=== PATIENT | male | born 1970 | race Caucasian/White ===

== ENCOUNTER 2016-12-03 07:23 | Emergency (ER) ==
[2016-12-03 08:05] LABS: MANUAL DIFF NEEDED? NO
[2016-12-03 08:07] LABS: BASO% 0.5 % (0.0-0.8); EOS# 0.02 X1000 (0.0-0.7); EOS% 0.5 % (0.0-10.0); HEMATOCRIT 41.1 % (42.0-52.0); HEMOGLOBIN 13.9 g/dL (14.0-18.0); LYMPH% 15.7 % (20.5-51.1); MCHC 33.8 g/dL (33-37); MCV 88.8 FL (81-99); MONO# 0.31 X1000 (0.11-0.59); MONO% 8.1 % (1.7-9.3); MPV 10.3 FL (7.4-10.4); NEUT% 75.2 % (42.2-75.2); PLT 143 X1000 (130-400); RBC 4.63 XMIL (4.7-6.1)
[2016-12-03] MEDS ORDERED: NS 1,000 ML IV ONE (08:12)
[2016-12-03] MEDS ORDERED: ZOFRAN IV ONE (08:12)
[2016-12-03] MEDS ORDERED: DILAUDID IV ONE (08:12)
[2016-12-03 08:36] LABS: ALBUMIN 3.9 g/dL (3.5-5.0); TOTAL BILIRUBIN 0.4 mg/dL (0.20-1.00); TOTAL PROTEIN 6.5 g/dL (6.3-8.3)
[2016-12-03 08:47] LABS: URINE CULTURE PL NEEDED? NO; URINE SOURCE CLEAN CATCH
[2016-12-03 08:54] LABS: BILIRUBIN URINE NEGATIVE (NEGATIVE); BLOOD URINE NEGATIVE (NEGATIVE); CLARITY CLEAR (CLEAR); COLOR YELLOW; GLUCOSE URINE NEGATIVE (NEGATIVE); LEUKOCYTES URINE NEGATIVE (NEGATIVE); NITRITE URINE NEGATIVE (NEGATIVE); PH URINE 6.5; PROTEIN URINE TRACE mg/dL (NEGATIVE); SP GRAVITY URINE 1.015; UROBILINOGEN URINE NORMAL
[2016-12-03 09:00] LABS: URINE EPITHELIAL CELLS <10 /HPF (<10)
--- NOTE | 2016-12-03 09:11 | Diag Imaging Result Document ---
PROCEDURE NAME: CERVICAL SPINE COMPLETE - 12/03/2016 CERVICAL SPINE AP AND LATERAL WITH OBLIQUES, SEVEN VIEWS: FINDINGS: there is good alignment to the cervical spine. No precervical soft tissue swelling. No subluxation. No significant bone spurring. IMPRESSION: Negative exam.
--- NOTE | 2016-12-03 09:13 | PROVIDER DOCUMENTATION ---
HPI-Abdominal Pain/GI Problem - General Chief Complaint: Abdominal Pain Stated Complaint: BACK/NECK PAIN Time Seen by Provider: 12/03/16 07:37 Source: patient Allergies/Adverse Reactions: Patient Allergies Allergy/AdvReac Type Severity Reaction Status Date / Time naproxen sodium * Allergy RASH Verified 11/20/15 07:43 [From Ankur] Home Medications: Home Medication List Medication Instructions Recorded Confirmed Last Taken Type Lisinopril/Hydrochlorothiazide 20 mg PO DAILY 11/20/15 11/20/15 11/19/15 06:00 History [Lisinopril-Hctz 20-12.5 mg Tab] Mesalamine E.r. 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 Also complains of neck pain reports pinched nerve feeling. Denies constipation,n,v,diarrhea. Abdominal Pain Onset Location: reports: generalized abdomen Quality of Pain: reports: aching Severity in ED: reports: severe Onset/Duration: reports: 24 hours ago Timing: reports: still present Rectal Bleeding: reports: none Rectal Pain: reports: none Emesis Description: reports: none Bruising or Bleeding Gums?: No Similar Symptoms Previously?: Yes Recently seen or treated by another doctor?: No Review of Systems - Adult - REVIEW OF SYSTEMS - ADULT Constitutional: denies: chills, fever, fatique Eyes: reports: no symptoms reported Ears, Nose, Mouth & Throat: reports: no symptoms reported Cardiovascular: denies: chest pain, irregular heart rate, orthopnea Respiratory: reports: no symptoms reported Gastrointestinal: reports: abdominal pain. denies: constipation, diarrhea, nausea, rectal bleeding, vomiting Genitourinary: reports: no symptoms reported Musculoskeletal: reports: see HPI, neck pain. denies: bone pain, back pain, joint pain, joint swelling Integumentary: reports: no symptoms reported Neurological: reports: no symptoms reported Psychiatric: reports: no symptoms reported Endocrine: reports: no symptoms reported Hematologic/Lymphatic: reports: no symptoms reported Allergic/Immunologic: reports: no symptoms reported All Other Systems: Reviewed and Negative Past History - Adult - PAST MEDICAL HISTORY-ADULT Review of Records: reports: Nursing Assessment Review Major Childhood Illnesses: reports: denies history Cardiovascular: reports: HTN Genitourinary: reports: kidney disease - PRIOR SURGERIES/PROCEDURES Surgical/Procedure History: reports: other (chrons ds) - IMMUNIZATION STATUS Childhood Immunizations: See Nurse Assessment Flu Vaccine: See Nurse Assessment - SOCIAL HISTORY Smoking: denies Substance Use: alcohol Alcohol Use Frequency: rarely Physical Exam-General - PHYSICAL EXAM-ADULT Initial Vital Signs Reviewed: Yes - CONSTITUTIONAL General Appearance: appears well, alert, no apparent distress - EYES Eyes: PERRL/EOMI - HEAD, EARS, NOSE, MOUTH & THROAT HENMT: moist mucous membranes, normal ENT inspection, TMs normal, pharynx normal - NECK Neck: non-tender, full range of motion, supple, normal inspection - RESPIRATORY Respiratory: chest non-tender, lungs clear, normal breath sounds, no pleuratic chest pain, no respiratory distress, no accessory muscle use - CARDIOVASCULAR Cardiovascular: regular rate, rhythm, no edema, no gallop, no JVD, no murmur - GASTROINTESTINAL (ABDOMEN) Abdominal Exam: normal bowel sounds, soft, no organomegaly, no pulsatile mass, tenderness (generalized ttp) - MUSCULOSKELETAL Back Exam: normal inspection, no CVA tenderness, no vertebral tenderness Extremity: normal range of motion, non-tender - SKIN Integumentary: normal color, normal turgor, warm/dry - PSYCHIATRIC Psych/Mental Status: normal mood/affect, normal thought content, normal thought process, oriented x 3 Progress - PLAN OF CARE/RESULTS Progress/Plan/Lab Results: Orders Category Date Time Status Saline Loc DIRECTED Care 12/03/16 07:56 Active NPO Diet 12/03/16 07:56 Active ABDOMEN FLAT/UPRIGHT [RAD] Stat Exams 12/03/16 07:56 Taken CERVICAL SPINE COMPLETE [RAD] Stat Exams 12/03/16 07:[address] ABD/PELVIS W/ IV CONT ONLY [CT] Stat Exams 12/03/16 08:48 Ordered AMYLASE [CHEM] Stat Lab 12/03/16 07:55 Completed CBC WITH ELECTRONIC DIFF [HEME] Stat Lab 12/03/16 07:55 Completed COMPREHENSIVE METABOLIC PANEL [CHEM] Stat Lab 12/03/16 07:55 Completed LIPASE [CHEM] Stat Lab 12/03/16 07:55 Completed TROPONIN T Stat Lab 12/03/16 07:[address] W/POSS RFLX CULT [URINALYSIS] Stat Lab 12/03/16 08:25 Completed 0.9% Sodium Chloride Inj [Ns] 1,000 ml Med 12/03/16 08:12 Active IV 999 mls/hr Hydromorphone [Dilaudid] Med 12/03/16 08:12 Discontinued 1 mg IV NOW ONE Ondansetron [Zofran] Med 12/03/16 08:12 Discontinued 4 mg IV NOW ONE Vital Signs - 24 hr 12/03/16 07:35 Temperature 98.9 F Pulse Rate 89 Respiratory 20 Rate Blood Pressure 134/71 O2 Sat by Pulse 99 Oximetry Laboratory Tests 12/03/16 12/03/16 12/03/16 07:55 07:55 07:55 WBC 3.81 L RBC 4.63 L Hgb 13.9 L Hct 41.1 L MCV 88.8 MCH 30.0 MCHC 33.8 RDW Std Deviation 12.5 Plt Count 143 MPV 10.3 Immature Gran % (Auto) 0.0 Neut % (Auto) 75.2 Lymph % (Auto) 15.7 L [place] % (Auto) 8.1 Eos % (Auto) 0.5 Baso % (Auto) 0.5 Immature Gran # (Auto) 0.00 Neut # (Auto) 2.86 Lymph # (Auto) 0.60 L [place] # (Auto) 0.31 Eos # (Auto) 0.02 Baso # (Auto) 0.02 Sodium 137 Potassium 4.0 Chloride 103 Carbon Dioxide 25 Anion Gap 9 BUN 14 Creatinine 1.3 H Estimated GFR/1.73 m2 59 BUN/Creatinine Ratio 11 Glucose 141 H Calculated Osmolality 277 Calcium 9.0 Total Bilirubin 0.40 AST 50 H ALT 71 H Alkaline Phosphatase 53 Troponin T < 0.010 Total Protein 6.5 Albumin 3.9 Globulin 3.0 Albumin/Globulin Ratio 2.0 Amylase 34 Lipase 30 Urine Source Urine Color Urine Clarity Urine pH Ur Specific [place] Urine Protein Urine Ketones Urine Blood Urine Nitrite Urine Bilirubin Urine Urobilinogen Urine Microscopic RBC Urine WBC Ur Epithelial Cells Urine Bacteria Urine Glucose 12/03/16 08:25 WBC RBC Hgb Hct MCV MCH MCHC RDW Std Deviation Plt Count MPV Immature Gran % (Auto) Neut % (Auto) Lymph % (Auto) [place] % (Auto) Eos % (Auto) Baso % (Auto) Immature Gran # (Auto) Neut # (Auto) Lymph # (Auto) [place] # (Auto) Eos # (Auto) Baso # (Auto) Sodium Potassium Chloride Carbon Dioxide Anion Gap BUN Creatinine Estimated GFR/1.73 m2 BUN/Creatinine Ratio Glucose Calculated Osmolality Calcium Total Bilirubin AST ALT Alkaline Phosphatase Troponin T Total Protein Albumin Globulin Albumin/Globulin Ratio Amylase Lipase Urine Source CLEAN CATCH Urine Color YELLOW Urine Clarity CLEAR Urine pH 6.5 Ur Specific [place] 1.015 Urine Protein TRACE A Urine Ketones NEGATIVE Urine Blood NEGATIVE Urine Nitrite NEGATIVE Urine Bilirubin NEGATIVE Urine Urobilinogen NORMAL Urine Microscopic RBC Not Reportable Urine WBC NEGATIVE Ur Epithelial Cells <10 Urine Bacteria 1+ Urine Glucose NEGATIVE - XRAY 1 XRAY: Bilateral XRAY Study: Abdomen Impression: Abnormal XRAY Interpretation: minimal constipation 2 XRAY: Bilateral XRAY Study: C-Spine Impression: Normal XRAY Interpretation: negative exam([facility]) - CT/MRI 1 CT Study: Abdomen Impression: Abnormal (mild fatty infiltration of the liver. questionalbe small nonobstructing renal stone with small scattered renal cyst. no hydronephrosis. no SHEN. Normal appendix. no abscess. small umbilical hernia and inguinal hernia filled with fat. no bowerl loops within these. questionable thickening to the distal esohagus which could indicate esophagits/reflux.) Departure - Departure Time of Disposition Order: 10:46 DIAGNOSIS: Neck pain Abdominal pain Qualifiers: Abdominal location: generalized Qualified Code(s): R10.84 - Generalized abdominal pain Disposition: HOME 01 Certified Medical Emergency: Emergent Condition: Stable Additional Instructions: Follow up with ED Follow Up Instructions: You have been treated by a care provider in the Emergency Department. These instructions are being provided to you so you can have an understanding of how to care for yourself upon discharge. Upon discharge from the Emergency Department, you are responsible for making arrangements for follow-up care by a physician of your choice. Take all prescribed medications as directed. Return to the Emergency Department immediately for any new or worsening symptoms. You may call the Physician Referral phone number at [phone] to obtain a list of Physicians who are taking new patients. Referrals: Mars Atkinson DO [Primary Care Provider] - Naya Lama MD [STAFF PHYSICIAN] - Attestation - Scribe Verification/Attestation Scribe:: Bruce Mendoza Acting as Scribe for:: Diandra Souza Scribe documention review:: This chart was documented by a scribe and accurately reflects the service the provider performed and the decisions made by the provider. Physician Attestation - Physician Attestation I, the provider, attest to the following statement:: Diandra Souza Physician documentation Attestation:: This documentation recorded by the scribe accurately reflects the service I personally performed and the decisions made by me.
--- NOTE | 2016-12-03 09:26 | Diag Imaging Result Document ---
PROCEDURE NAME: ABDOMEN FLAT/UPRIGHT - 12/03/2016 FLAT AND UPRIGHT ABDOMEN, FOUR VIEWS: FINDINGS: No free air beneath the diaphragm. No organomegaly. Small amount of stool is found throughout the colon. No bowel obstruction. No abnormal abdominal or pelvic calcifications. IMPRESSION: Minimal constipation.
--- NOTE | 2016-12-03 10:26 | Diag Imaging Result Document ---
PROCEDURE NAME: CT ABD/PELVIS W/ IV CONT ONLY - 12/03/2016 CT ABDOMEN AND PELVIS WITH INTRAVENOUS CONTRAST: COMPARISON: 11/20/2015. FINDINGS: There is mild fatty infiltration of the liver. Questionable mild thickening of the distal esophagus at the GE junction. Normal spleen, pancreas, gallbladder, and adrenal glands. There may be tiny renal stones, but uncertain with intravenous contrast. There are several tiny renal cysts. No hydronephrosis. Normal aorta. No bowel obstruction. Normal appendix. No abscess. The urinary bladder is distended and appears normal. The prostate is not enlarged. There are small fat filled inguinal hernias. No bowel loops within these. There is a fat filled umbilical hernia. No bowel loop within this. No free air. IMPRESSION: 1. Mild fatty infiltration of the liver. 2. Questionable small nonobstructing renal stones with small scattered renal cysts. No hydronephrosis. 3. No bowel obstruction. Normal appendix. No abscess. 4. Small umbilical hernia and inguinal hernias filled with fat. No bowel loops within these. 5. Questionable thickening to the distal esophagus which could indicate esophagitis/reflux. A preliminary report was given at 10:11 a.m. [facility]
[2016-12-03] MEDS ORDERED: NORCO-10 PO ONE (10:47)
[2016-12-03 11:19] VITALS: BP 120/80
== END 2016-12-03 11:24 | disposition home or self-care (01) ==
LOC: P.ED 07:23
DX: R10.84 Generalized abdominal pain (principal); M54.2 Cervicalgia; K76.0 Fatty (change of) liver, not elsewhere classified; K42.9 Umbilical hernia without obstruction or gangrene; K40.90 Unilateral inguinal hernia, without obstruction or gangrene, not specified as recurrent; R10.817 Generalized abdominal tenderness; I10 Essential (primary) hypertension; Z79.899 Other long term (current) drug therapy
CPT/HCPCS: 72050; 74020; 74177; 80053; 81001; 82150; 83690; 84484; 85025; 96361; 96374; 96375; J1170; J2405; J7030; Q9967

== ENCOUNTER 2016-12-06 13:03 | Inpatient (IN) | payer OTHER ==
--- NOTE | 2016-12-06 13:36 | PROVIDER DOCUMENTATION ---
HPI-Abdominal Pain/GI Problem - General Chief Complaint: Abdominal Pain Stated Complaint: CROHNS PAIN Time Seen by Provider: 12/06/16 13:12 Source: patient, family Allergies/Adverse Reactions: Patient Allergies Allergy/AdvReac Type Severity Reaction Status Date / Time naproxen sodium * Allergy RASH Verified 12/06/16 13:39 [From Julietamojgan] Home Medications: Home Medication List Medication Instructions Recorded Confirmed Last Taken Type Lisinopril/Hydrochlorothiazide 20 mg PO DAILY 11/20/15 12/06/16 12/05/16 08:00 History [Lisinopril-Hctz 20-12.5 mg Tab] - History of Present Illness-ABD Nature of Presenting Problems: 46 yo WM complains of 5 day history of worsening abdominal pain. Last normal BM was Friday. Began having abdominal pain on 12-02. Was seen at [facility] with normal CT, sent home. Since then scant/inadequate bowel output and worsening pain which has localized in the mid abdomen radiating to the left side. Feels 'hot' did not measure temp. Patient of Dr. Lama. Abdominal Pain Onset Location: reports: LLQ, periumbilical Pain Radiation: reports: LLQ Quality of Pain: reports: aching, cramping Severity in ED: reports: severe Onset/Duration: reports: 5 days ago Timing: reports: intermittent, getting worse Activities at Onset: reports: none Exposure to sick contacts?: No Modifying Factors: improves with: palpation. worse with: eating, urinating, vomiting Associated Symptoms: reports: constipation, fever/chills, loss of appetite, malaise, muscle aches, nausea, vomiting. denies: genitourinary problems, heartburn Last BM: last night Dark Stools Present?: reports: none noticed Rectal Bleeding: reports: none Rectal Pain: reports: none Emesis Description: reports: clear Bruising or Bleeding Gums?: No Similar Symptoms Previously?: Yes Recently seen or treated by another doctor?: No Review of Systems - Adult - REVIEW OF SYSTEMS - ADULT Constitutional: reports: fever Ears, Nose, Mouth & Throat: reports: no symptoms reported Cardiovascular: reports: no symptoms reported Respiratory: reports: no symptoms reported Gastrointestinal: reports: see HPI, abdominal pain, constipation, nausea, poor appetite, vomiting. denies: rectal bleeding Genitourinary: reports: no symptoms reported Musculoskeletal: reports: no symptoms reported Integumentary: reports: no symptoms reported Neurological: reports: no symptoms reported Psychiatric: reports: no symptoms reported Past History - Adult - PAST MEDICAL HISTORY-ADULT Review of Records: reports: Old Records Reviewed, Nursing Assessment Review, Medications Reviewed, Social history reviewed & non-contributory. Major Childhood Illnesses: reports: denies history Cardiovascular: reports: HTN Gastrointestinal: reports: Crohn's, obstruction Genitourinary: reports: kidney disease Musculoskeletal: reports: denies history Neurological: reports: denies history Psychiatric: reports: denies history - PRIOR SURGERIES/PROCEDURES Surgical/Procedure History: reports: other (chrons ds) - IMMUNIZATION STATUS Childhood Immunizations: See Nurse Assessment Flu Vaccine: See Nurse Assessment - FAMILY HISTORY Family History: reviewed, not pertinent - SOCIAL HISTORY Smoking: denies Substance Use: none/never Alcohol Use Frequency: never Living Situation: family Physical Exam-General - PHYSICAL EXAM-ADULT Initial Vital Signs Reviewed: Yes - CONSTITUTIONAL General Appearance: moderate distress - HEAD, EARS, NOSE, MOUTH & THROAT HENMT: normocephalic/atraumatic, moist mucous membranes, normal ENT inspection - NECK Neck: non-tender. negative: carotid bruit, limited range of motion - RESPIRATORY Respiratory: lungs clear, normal breath sounds, no pleuratic chest pain, no respiratory distress, no accessory muscle use - CARDIOVASCULAR Cardiovascular: normal peripheral pulses, regular rate, rhythm, no edema, no JVD - GASTROINTESTINAL (ABDOMEN) Abdominal Exam: normal bowel sounds, distended, guarding, rebound, tenderness. negative: rigid - MUSCULOSKELETAL Back Exam: no CVA tenderness, no vertebral tenderness Extremity: non-tender, normal inspection, no pedal edema, no calf tenderness, normal capillary refill - SKIN Integumentary: normal color, normal turgor, other (slightly erythematous rash on abdominal wall) - PSYCHIATRIC Psych/Mental Status: normal mood/affect, normal thought content, normal thought process, oriented x 3 Progress - PLAN OF CARE/RESULTS Progress/Plan/Lab Results: Orders Category Date Time Status Saline Loc DIRECTED Care 12/06/16 13:27 Active Soap Suds Enema DIRECTED Care 12/06/16 15:45 Active NPO Diet 12/06/16 13:[address] ABD/PELVIS W/ IV CONT ONLY [CT] Stat Exams 12/06/16 13:30 Taken AMYLASE [CHEM] Stat Lab 12/06/16 13:22 Completed CBC WITH ELECTRONIC DIFF [HEME] Stat Lab 12/06/16 13:22 Completed COMPREHENSIVE METABOLIC PANEL [CHEM] Stat Lab 12/06/16 13:22 Completed LIPASE [CHEM] Stat Lab 12/06/16 13:22 Completed URINALYSIS W/POSS RFLX CULT [URINALYSIS] Stat Lab 12/06/16 14:10 Completed 0.9% Sodium Chloride Inj [Ns] 1,000 ml Med 12/06/16 14:40 Discontinued IV 999 mls/hr Hydromorphone [Dilaudid] Med 12/06/16 15:43 Discontinued 1 mg IV NOW ONE Methylnaltrexone [Relistor] Med 12/06/16 15:45 Discontinued 12 mg SUBQ NOW ONE Morphine Med 12/06/16 13:52 Discontinued 4 mg IV NOW ONE Promethazine [Phenergan] Med 12/06/16 13:52 Discontinued 12.5 mg IV NOW ONE Sodium Chloride 0.9% Med 12/06/16 13:52 Discontinued 10 ml INJ NOW ONE Vital Signs Temp Pulse Resp BP Pulse Ox 12/06/16 13:06 97.7 F 84 20 116/74 100 naproxen sodium * [From Aleve] Allergy (Verified 12/06/16 13:39) RASH Lisinopril/Hydrochlorothiazide [Lisinopril-Hctz 20-12.5 mg Tab] 20 mg PO DAILY 11/20/15 Dietary Diet NPO Start Fri 3 1327 I&O 12/05/16 12/06/16 12/07/16 07:59 07:59 07:59 Output Total 75 Balance -75 Laboratory 12/06/16 12/06/16 12/06/16 14:10 13:22 13:22 WBC 4.40 L RBC 4.47 L Hgb 13.5 L Hct 39.1 L MCV 87.5 MCH 30.2 MCHC 34.5 RDW Std Deviation 12.3 Plt Count 141 MPV 10.3 Immature Gran % (Auto) 0.0 Neut % (Auto) 67.2 Lymph % (Auto) 17.3 L [place] % (Auto) 13.4 H Eos % (Auto) 1.6 Baso % (Auto) 0.5 Immature Gran # (Auto) 0.00 Neut # (Auto) 2.96 Lymph # (Auto) 0.76 L [place] # (Auto) 0.59 Eos # (Auto) 0.07 Baso # (Auto) 0.02 Sodium 133 L Potassium 4.4 Chloride 94 L Carbon Dioxide 28 Anion Gap 11 BUN 16 Creatinine 1.3 H Estimated GFR/1.73 m2 59 BUN/Creatinine Ratio 12 Glucose 115 H Calculated Osmolality 268 Calcium 8.7 L Total Bilirubin 0.68 AST 72 H ALT 114 H Alkaline Phosphatase 101 Total Protein 6.7 Albumin 3.8 Globulin 2.9 Albumin/Globulin Ratio 1.3 Amylase 44 Lipase 31 Urine Source CLEAN CATCH Urine Color YELLOW Urine Turbidity CLEAR Urine pH 7.0 Ur Specific [place] 1.028 Urine Protein 30 A Ur Glucose (Stick) NEGATIVE Ur Ketones (Stick) NEGATIVE Urine Blood NEGATIVE Urine Nitrite NEGATIVE Urine Bilirubin NEGATIVE Urobilinogen Dipstick 2 A Urine Leukocytes NEGATIVE Urine WBC (Auto) <10 Urine RBC (Auto) <10 U Epithel Cells (Auto) <10 Urine Bacteria (Auto) NEGATIVE 1535 Patient still in pain requests different pain med. Discussed results, will continue IVF and try enema. Patient in agreement. 1800 After enema he was able to have BM but does not feel 'emptied.' Continues to have abdominal pain and cramping. - CONSULTS/PCP/HOSPITALIST Notification #1 *Consult/PCP/Hospitalist*: Ulisses Time Discussed: 18:15 Consult Disposition: Will see in ED, Admit Departure - Departure Time of Disposition Order: 18:10 DIAGNOSIS: Abdominal pain of unknown cause Constipation Qualifiers: Constipation type: other constipation type Qualified Code(s): K59.09 - Other constipation Crohns disease Qualifiers: Gastrointestinal tract location: small intestine Digestive disease complication type: without complication Qualified Code(s): K50.00 - Crohn's disease of small intestine without complications Disposition: ADMITTED INPATIENT 09 Certified Medical Emergency: Emergent Condition: Stable Referrals: Mars Atkinson DO [Primary Care Provider] -
[2016-12-06 13:41] LABS: MANUAL DIFF NEEDED? NO
[2016-12-06 13:46] LABS: BASO% 0.5 % (0.0-0.8); EOS# 0.07 X1000 (0.0-0.7); EOS% 1.6 % (0.0-10.0); HEMATOCRIT 39.1 % (42.0-52.0); HEMOGLOBIN 13.5 g/dL (14.0-18.0); LYMPH# 0.76 X1000 (1.2-3.4); LYMPH% 17.3 % (20.5-51.1); MCH 30.2 PG (27-31); MCHC 34.5 g/dL (33-37); MCV 87.5 FL (81-99); MONO# 0.59 X1000 (0.11-0.59); MONO% 13.4 % (1.7-9.3); MPV 10.3 FL (7.4-10.4); NEUT% 67.2 % (42.2-75.2); PLT 141 X1000 (130-400); RBC 4.47 XMIL (4.7-6.1)
[2016-12-06] MEDS ORDERED: PHENERGAN IV ONE (13:52)
[2016-12-06] MEDS ORDERED: SODIUM CHLORIDE 0.9% INJ ONE (13:52)
[2016-12-06] MEDS ORDERED: MORPHINE IV ONE (13:52)
[2016-12-06 14:02] LABS: ALBUMIN 3.8 g/dL (3.5-5.0); CALCIUM 8.7 mg/dL (8.8-10.2); POTASSIUM 4.4 mmol/L (3.5-5.1); TOTAL BILIRUBIN 0.68 mg/dL (0.20-1.00); TOTAL PROTEIN 6.7 g/dL (6.3-8.3)
[2016-12-06 14:13] LABS: URINE CULTURE NEEDED? NO; URINE MICRO REVIEW NEEDED? NO; URINE SOURCE CLEAN CATCH
[2016-12-06 14:16] LABS: BILIRUBIN URINE NEGATIVE (NEGATIVE); BLOOD URINE NEGATIVE (NEGATIVE); COLOR YELLOW; GLUCOSE URINE NEGATIVE (NEGATIVE); LEUKOCYTES URINE NEGATIVE (NEGATIVE); NITRITE URINE NEGATIVE (NEGATIVE); PROTEIN URINE 30 mg/dL (NEGATIVE); SP GRAVITY URINE 1.028; TURBIDITY URINE CLEAR (CLEAR); UROBILINOGEN URINE 2 mg/dL (NORMAL)
[2016-12-06 14:17] LABS: UR EPITHELIAL CELLS <10 /HPF (<10); URINE BACTERIA NEGATIVE /HPF; URINE RBC <10 /HPF (<10); URINE WBC <10 /HPF (<10)
[2016-12-06] MEDS ORDERED: NS 1,000 ML IV ONE (14:40)
[2016-12-06] MEDS ORDERED: DILAUDID IV ONE (15:43)
[2016-12-06] MEDS ORDERED: RELISTOR SUBQ ONE (15:45)
--- NOTE | 2016-12-06 15:48 | Diag Imaging Result Document ---
PROCEDURE NAME: CT ABD/PELVIS W/ IV CONT ONLY - 12/06/2016 CT ABDOMEN AND PELVIS WITH IV CONTRAST ONLY: Exam performed with intravenous contrast only per request of the referring provider. A dose-reduction protocol was used. COMPARISON: No comparison exam. FINDINGS: There is some hazy atelectasis at the bilateral lung bases. There are no acute abnormalities of the liver, spleen, adrenal glands, or pancreas identified. There are no calcified gallstones or pericholecystic inflammation identified. There are scattered small low-density lesions suggestive of cyst in the kidneys similar to the previous exam. The bilateral kidneys, otherwise, enhance homogeneously. There is no hydronephrosis. There are no substantially enlarged lymph nodes identified. There is no evidence of bowel obstruction. The appendix is unremarkable. There is a small fat- containing umbilical hernia similar to the previous exam. There is no bowel-containing hernia identified. There is no substantial bowel wall thickening identified. There is no abscess identified. There is no free air or substantial free fluid seen. IMPRESSION: 1. Apparent small renal cysts similar to the previous exam. No hydronephrosis. 2. Small fat-containing umbilical hernia. No bowel-containing hernia. No bowel obstruction. 3. No inflammation identified. No free air or abscess seen.
[2016-12-06] MEDS ORDERED: ZOFRAN IV ONE (15:58)
[2016-12-06] MEDS ORDERED: PREDNISONE PO ONE (18:54)
--- NOTE | 2016-12-06 20:06 | HISTORY AND PHYSICAL ---
PRIMARY CARE PHYSICIAN: Mars Atkinson D.O. CHIEF COMPLAINT: Abdominal pain and constipation. HISTORY OF PRESENT ILLNESS: The patient is a 46-year-old white male with a history of hypertension and recently diagnosed with Crohn's who presented to the emergency room with a 5-day history of constipation and left upper and lower quadrant pain. The patient stated that he was in his usual state of health until about Friday when he noticed that he could not have a bowel movement and it continued to get worse as time went on. His nausea was also getting worse up until yesterday when he started having vomiting and he feels better. His pain continued to get worse to the point where he called his GI office, Dr. Lama, who suggested that he go to the emergency room if he did not get any better. The patient showed up to the emergency room with the same complaint. He did have some nausea and vomiting today. In the emergency room they gave him an enema and he did have a small bowel movement. A CAT scan of the abdomen and pelvis was also done in the emergency room that showed no inflammation, free air or abscess. Furthermore the patient has not been able to eat or drink adequately since the symptoms started Friday. He appeared to be very dehydrated. His mucous membranes were also dry. He denied having any recent sickness or sick contacts. He denies eating anything out of the ordinary. PAST MEDICAL HISTORY: 1. Crohn's. 2. Obesity. 3. Hypertension. 4. Arthritis. PAST SURGICAL HISTORY: 1. Shoulder surgery. 2. Head and neck surgery. 3. Sinus surgery. 4. Left femur and ankle surgery. ALLERGIES: The patient is allergic to naproxen. FAMILY HISTORY: His brother with cirrhosis of the liver secondary to alcohol abuse. No other heart disease running in his family. SOCIAL HISTORY: The patient is a social drinker. He denies tobacco, alcohol or any recreational drugs. HOME MEDICATIONS: 1. [id number] laxative as needed. 2. Lisinopril/hydrochlorothiazide 25 mg., 1 tablet p.o. daily. REVIEW OF SYSTEMS: Twelve systems reviewed and were negative except for what is mentioned in history of present illness. PHYSICAL EXAMINATION: VITAL SIGNS: Blood pressure 116/74, pulse 84, respirations 20, temperature 97.7 degrees, sat 100% on room air. Weight 244 pounds. GENERAL APPEARANCE: Morbidly obese, white male, in mild distress due to abdominal discomfort. HEENT: Anicteric sclerae. Clear conjunctivae. NECK: Supple. No JVD. No bruit. CARDIOVASCULAR: S1, S2. Normal rate and rhythm. No murmur, rubs, or gallops. PULMONARY: Clear to auscultation bilaterally. GASTROINTESTINAL: Abdomen soft. Tender to palpation in the left upper and lower quadrant. Normoactive bowel sounds. MUSCULOSKELETAL: Left lower extremity has about 1+ pitting edema which is chronic for the patient. Right lower extremity has no edema. NEUROLOGIC: Afocal. PSYCHIATRIC: Euthymic mood. LABORATORY: White count 4.4, hemoglobin 13.5, hematocrit 39.1, platelets 141,000. Chemistry: Sodium 132, potassium 4.4, chloride 94, bicarb 28, BUN 16, creatinine 1.3, lipase 31, amylase 44. Liver function tests mildly elevated, 72 AST and 114 ALT. CAT scan of the abdomen and pelvis were reviewed. ASSESSMENT AND PLAN: This is a 46-year-old, white male with history of Crohn's admitted to the hospital for abdominal pain. 1. Abdominal pain. The etiology is vast. Since the patient had Crohn's disease, concerning for Crohn's flare. CAT scan of the abdomen and pelvis did not reveal significant stool burden. This most likely was probably secondary to a Crohn's flare. We started the patient on prednisone 50 mg p.o. daily, antibiotics Flagyl and Levaquin, and laxative. We will send stool for C. difficile if he is not having diarrhea. 2. Dehydration with hyponatremia and mildly elevated creatinine. We will start the patient on normal saline 125 mL per hour. We will recheck his renal function in the morning. We will also recheck his liver function in the morning to make sure that his AST and ALT are trending down. We will also consider a right upper quadrant ultrasound if his liver function continues to remain elevated. 3. Hypertension. We will resume his Zestoretic. 4. Deep vein thrombosis prophylaxis. We will put the patient on Lovenox 40 mg subcutaneous daily. CODE STATUS: The patient is a full code. His is his surrogate decision maker.
[2016-12-06] MEDS: DILAUDID IV PRN ×2 (21:07→23:55)
[2016-12-06] MEDS: ZOFRAN IV PRN (21:07)
[2016-12-06] MEDS: NS 1,000 ML IV SCH (21:11)
[2016-12-06] MEDS: FLAGYL 500 MG/NS 100 ML IV SCH (21:23)
[2016-12-06] MEDS: MIRALAX PO SCH (21:23)
[2016-12-06] MEDS: LEVAQUIN 750 MG/D5W 150 ML IV SCH (21:23)
[2016-12-06] MEDS: PRILOSEC PO SCH (21:24)
[2016-12-06] MEDS: PERICOLACE PO SCH (21:24)
[2016-12-07] MEDS: ZOFRAN IV PRN ×6 (01:07→21:33)
[2016-12-07] MEDS: NS 1,000 ML IV SCH ×3 (04:45→12:01)
[2016-12-07 05:47] LABS: MANUAL DIFF NEEDED? NO
[2016-12-07 06:02] LABS: BASO% 0.3 % (0.0-0.8); HEMATOCRIT 36.8 % (42.0-52.0); HEMOGLOBIN 12.7 g/dL (14.0-18.0); LYMPH# 0.72 X1000 (1.2-3.4); LYMPH% 18.2 % (20.5-51.1); MCH 30.5 PG (27-31); MCHC 34.5 g/dL (33-37); MCV 88.2 FL (81-99); MONO# 0.27 X1000 (0.11-0.59); MONO% 6.8 % (1.7-9.3); MPV 10.4 FL (7.4-10.4); NEUT% 74.7 % (42.2-75.2); PLT 142 X1000 (130-400); RBC 4.17 XMIL (4.7-6.1)
[2016-12-07 06:11] LABS: INR 1.07; PROTIME 11.4 Seconds (9.2-11.7); PTT 30.3 Seconds (22.0-36.0)
[2016-12-07] MEDS: FLAGYL 500 MG/NS 100 ML IV SCH ×3 (06:14→21:33)
[2016-12-07] MEDS: PRILOSEC PO SCH ×2 (06:15→21:33)
[2016-12-07] MEDS: DILAUDID IV PRN ×6 (06:15→23:28)
[2016-12-07 06:17] LABS: AGAP 11; ALBUMIN 3.5 g/dL (3.5-5.0); ALKALINE PHOSPHATASE 88 U/L (32-122); BUN 15 mg/dL (8-22); CALCIUM 8.3 mg/dL (8.8-10.2); CHLORIDE 98 mmol/L (98-107); COSMO 273; GOT 48 U/L (10-34); GPT 94 U/L (10-44); MAGNESIUM 2.2 mg/dL (1.5-2.7); SODIUM 134 mmol/L (136-145); TCO2 25 mmol/L (25-35); TOTAL BILIRUBIN 0.47 mg/dL (0.20-1.00); TOTAL PROTEIN 6.3 g/dL (6.3-8.3)
[2016-12-07] MEDS: LOVENOX SUBQ SCH (09:37)
[2016-12-07] MEDS: MIRALAX PO SCH ×2 (09:39→21:33)
[2016-12-07] MEDS: PREDNISONE PO SCH (09:41)
[2016-12-07] MEDS: PRINZIDE 20/12.5MG PO SCH (09:43)
[2016-12-07] MEDS: PERICOLACE PO SCH ×2 (09:43→21:33)
--- NOTE | 2016-12-07 14:42 | PROGRESS NOTE ---
DATE: 12/07/2016 SUBJECTIVE: The patient is doing a little better than he was yesterday. No fever, no chills. No nausea, vomiting, or diarrhea. No bowel movement since admission. OBJECTIVE: Vital signs: Blood pressure 120/78, pulse of 54, respiration 18, temperature 97.8 degrees, saturations 100% room air. General appearance: Morbidly obese white male, no acute distress. HEENT: Anicteric. Clear conjunctiva. Neck: Supple. No JVD. No bruits. Cardiovascular: S1, S2. Normal rate and rhythm. No murmur, rubs, or gallops. Pulmonary: Clear to auscultation bilaterally. GI: Tender to palpation on the left upper and lower quadrants. Normoactive bowel sounds. Musculoskeletal: No clubbing, cyanosis, or edema. LABORATORY: White count 3.96, hemoglobin 12.7, hematocrit of 36.8, platelets 142,000. Sodium 134, potassium 5.0, chloride 98, bicarb 25, BUN 15, creatinine 1.0, glucose 176. ASSESSMENT AND PLAN: This is a 46-year-old white male admitted to the hospital for abdominal pain. 1. Crohn flare. Will continue antibiotics and steroids. Will continue laxative. Advance patient to a full liquid. Will monitor his in and out. 2. Hypertension. Will keep the patient on Zestoretic for now and will keep on IV fluids as well. 3. Deep vein thrombosis prophylaxis. The patient on Lovenox. 4. Code Status. The patient is a full code. 1. Will check lab work in the morning.
[2016-12-07] MEDS: LEVAQUIN 750 MG/D5W 150 ML IV SCH (23:28)
[2016-12-08] MEDS: ZOFRAN IV PRN ×5 (01:26→20:29)
[2016-12-08] MEDS: NS 1,000 ML IV SCH ×3 (03:08→20:20)
[2016-12-08] MEDS: FLAGYL 500 MG/NS 100 ML IV SCH ×3 (04:48→22:52)
[2016-12-08] MEDS: DILAUDID IV PRN ×5 (04:57→20:28)
[2016-12-08] MEDS: PRILOSEC PO SCH ×2 (05:59→20:27)
[2016-12-08] MEDS: PREDNISONE PO SCH (08:03)
[2016-12-08] MEDS: MIRALAX PO SCH ×2 (08:03→20:24)
[2016-12-08] MEDS: PERICOLACE PO SCH ×2 (08:03→20:24)
[2016-12-08] MEDS: LOVENOX SUBQ SCH (08:03)
[2016-12-08] MEDS: PRINZIDE 20/12.5MG PO SCH (08:04)
[2016-12-08] MEDS: BENADRYL IV PRN ×2 (08:27→16:27)
--- NOTE | 2016-12-08 14:49 | PROGRESS NOTE ---
DATE: 12/08/2016 SUBJECTIVE: The patient is feeling well. Minimal pain and no nausea, no vomiting. The patient just has small bowel movements but no diarrhea. OBJECTIVE: Vital signs: Blood pressure 112/67, pulse of 59, respirations 20, temperature 98.0 degrees, saturations of 100% room air. General Appearance: Obese white male in no acute distress. HEENT: Anicteric. Clear conjunctivae. Neck: Supple. No JVD. No bruits. Cardiovascular: S1, S2. Normal rate and rhythm. No murmur, rubs, or gallops. Pulmonary: Clear to auscultation bilaterally. GI: Soft, nontender, nondistended. Normoactive bowel sounds. Musculoskeletal: No clubbing, cyanosis or edema. LABORATORY: His white count 3.96, hemoglobin 12.7, hematocrit of 36.8, platelets 142,000. Chemistry. Sodium 134, potassium 5.0, chloride 98, bicarb 25, BUN 15, creatinine 1.0, glucose of 170. Liver function tests trending down. ASSESSMENT AND PLAN: This is a 46-year-old white male with history of Crohn disease admitted to the hospital for abdominal pain, nausea and vomiting. 1. Abdominal pain. Probably is due to his Crohn flare. Will continue prednisone p.o. and continue Flagyl and Levaquin. If he continues to do well will consider to transition him to oral Flagyl and Levaquin for the next 7 days and tapering his steroid at discharge. Will advance diet to soft. We had not been able to obtain the stool for cultures since the patient has not had some much of bowel movement lately. 2. Hypertension. Will continues Zestoretic. 3. Deep vein thrombosis prophylaxis. The patient on Lovenox. CODE STATUS: The patient is a full code.
[2016-12-08] MEDS: LEVAQUIN 750 MG/D5W 150 ML IV SCH (20:20)
[2016-12-09] MEDS: ZOFRAN IV PRN ×4 (00:38→11:57)
[2016-12-09] MEDS: DILAUDID IV PRN ×3 (00:38→11:57)
[2016-12-09] MEDS: FLAGYL 500 MG/NS 100 ML IV SCH ×2 (04:14→13:11)
[2016-12-09] MEDS: NS 1,000 ML IV SCH (04:17)
[2016-12-09] MEDS: PRILOSEC PO SCH ×2 (06:01→18:29)
[2016-12-09 06:56] LABS: MANUAL DIFF NEEDED? NO
[2016-12-09 07:15] LABS: BASO% 0.2 % (0.0-0.8); EOS# 0.02 X1000 (0.0-0.7); EOS% 0.2 % (0.0-10.0); HEMATOCRIT 37.5 % (42.0-52.0); HEMOGLOBIN 12.7 g/dL (14.0-18.0); IMM GRAN# 0.06 X1000 (0.0-0.04); IMM GRAN% 0.7 % (0.0-0.5); LYMPH# 1.52 X1000 (1.2-3.4); LYMPH% 17.2 % (20.5-51.1); MCH 30.2 PG (27-31); MCHC 33.9 g/dL (33-37); MCV 89.3 FL (81-99); MPV 9.8 FL (7.4-10.4); NEUT% 72.7 % (42.2-75.2); PLT 194 X1000 (130-400)
[2016-12-09 07:21] LABS: AGAP 7; BUN 17 mg/dL (8-22); CALCIUM 8.1 mg/dL (8.8-10.2); CHLORIDE 99 mmol/L (98-107); COSMO 272; POTASSIUM 4.2 mmol/L (3.5-5.1); SODIUM 135 mmol/L (136-145); TCO2 29 mmol/L (25-35)
[2016-12-09] MEDS: PREDNISONE PO SCH (11:08)
[2016-12-09] MEDS: PERICOLACE PO SCH (11:08)
[2016-12-09] MEDS: LOVENOX SUBQ SCH (11:08)
[2016-12-09] MEDS: PRINZIDE 20/12.5MG PO SCH (11:08)
[2016-12-09] MEDS: MIRALAX PO SCH (11:09)
[2016-12-09 14:37] VITALS: BP 138/79
[2016-12-09] MEDS ORDERED: SODIUM CHLORIDE 0.9% INJ SCH (16:30)
[2016-12-09] MEDS ORDERED: PROTONIX IV SCH (16:30)
[2016-12-09] MEDS ORDERED: NORCO-5 PO PRN (16:31)
--- NOTE | 2016-12-09 18:21 | PROGRESS NOTE ---
DATE: 12/09/2016 SUBJECTIVE: The patient complains of a headache this morning. He states that overall he just does not feel very good. OBJECTIVE: Vital Signs: Temperature 98.7 degrees, blood pressure 130/79, heart rate 70, respirations 18, O2 saturations 99% on room air. General: This is a morbidly obese male, lying in bed, in no acute distress. Head: Normocephalic, atraumatic. Heart: S1, S2 normal. Regular rate and rhythm. Lungs: Clear to auscultation bilaterally. No wheezes, no rales, no rhonchi. Abdomen: Positive bowel sounds. Soft, nontender, nondistended. Extremities: No edema. No cyanosis. No calf tenderness. Neurological: Patient is alert and oriented x3. No focal neurologic deficits noted. LABS: White blood cell count 8.5, hemoglobin 12, hematocrit 37, platelets 194,000. Sodium 135, potassium 4.2, chloride 99, CO2 28, BUN 17, creatinine 1.2, glucose 108, calcium 8.1. ASSESSMENT AND PLAN: 1. Crohn's flare. Continue on IV Levaquin and IV Flagyl. Continue on steroid therapy. We will consult Dr. Lama for further recommendations. 2. Morbid obesity. Aware. 3. Hypertension. Controlled. 4. Deep vein thrombosis prophylaxis. Continue on Lovenox.
--- NOTE | 2016-12-09 20:10 | CONSULTATION ---
DATE OF CONSULTATION: 12/09/2016 REFERRING PHYSICIAN: Charisse Silverman MD PRIMARY CARE PHYSICIAN: Mars Atkinson MD INDICATION FOR CONSULTATION: Abdominal pain. HISTORY OF PRESENT ILLNESS: Patient is a 46-year-old white male who was initially evaluated in November 2015. At that time he presented with a possible small bowel obstruction and an abnormal CT scan. He underwent EGD and colonoscopy for evaluation of dysphagia, heartburn, nausea with vomiting and severe constipation. On EGD he was found to have erosive esophagitis grade D, Schatzki's ring, large hiatal hernia, acute erosive gastritis, nonbleeding arteriovenous malformations and an AVM. He was treated with Carafate and Protonix with interval improvement. However, he did not return for his follow up surveillance EGD in light of the presence of the large antral ulcer. On colonoscopy he was found to have terminal ileitis as well as pancolitis. There was mild proctitis. While the changes were consistent with Crohn's disease, his Prom[facility] panel was negative. He was treated with oral steroids and Pentasa for 6 months. His Pentasa was discontinued and continued to do well. However he failed to keep his followup appointment for repeat EGD and colonoscopy. The patient states that he felt reasonably well until approximately 2 weeks ago when he developed flu-like symptoms. The symptoms were associated with severe abdominal pain. He presented to [facility] emergency room were he was told that he was constipated. He was treated with an enema but continued to have constipation, left upper quadrant and left lower quadrant pain. He reports eating corn and reports that his pain became severely more intense over the next 4-6 hours. He presented to the emergency room. CT scan of the abdomen, pelvis was negative for inflammation, free air or abscess. Because the patient was dehydrated and having abdominal pain he was admitted. Since he was placed on IV Solu-Medrol, Flagyl, Levaquin and a stool softener, his abdominal pain has improved and he is feeling better. He also notes resolution of joint pains that he was having at the time when his symptoms began. Because he is feeling better, the patient asked if he can undergo his followup EGD and colonoscopy as an outpatient. PAST MEDICAL HISTORY: Remarkable for. 1. Hypertension. 2. Kidney stones. 3. Back pain secondary to herniated disk. 4. Morbid obesity. 5. Pancolitis in 2016. 6. Ileitis in 2016. 7. Gastric ulcer on 2016. 8. Grade D erosive esophagitis in 2016. 9. Schatzki ring in 2016. 10. Erosive gastritis in 2016. 11. Arthritis. PAST SURGICAL HISTORY: 1. Shoulder surgery. 2. Neck surgery. 3. Head surgery. 4. Sinus surgery. 5. Left femur and ankle fracture status post surgical repair. MEDICATION ALLERGIES: Naprosyn. FAMILY HISTORY: Remarkable that his brother from cirrhosis secondary to ETOH abuse. There is no history of colon cancer. SOCIAL HISTORY: Remarkable in that he is a social drinker. He denies tobacco or recreational drug use. MEDICATIONS: 1. [id number]-[id number] laxative as needed. 2. Lisinopril/hydrochlorothiazide. REVIEW OF SYSTEMS: Remarkable for nausea with vomiting and abdominal pain that has subsequently resolved. He also notes constipation which is better with the addition of steroids and a laxative. He notes occasional heartburn and rare dysphagia. Overall he reports feeling well. PHYSICAL EXAM: Vital signs: On exam his blood pressure is 138/79, pulse is 70, respirations 15, temperature of 98.7 degrees. HEENT: Negative for jaundice. His oropharyngeal mucosa membranes are unremarkable. Pulmonary: Lungs clear to auscultation with normal expiratory effort. Cardiovascular Exam: Reveals regular rate and rhythm with no murmurs, gallops, or rubs. Abdominal Exam: Reveals normoactive bowel sounds. The abdomen is soft and nontender. There is increased central adiposity. Extremities: Bilaterally are negative for cyanosis, clubbing, or edema. OBJECTIVE DATA: Remarkable for hemoglobin of 12.7 with hematocrit of 37.5 and a white count of 8.85. He has 194,000 platelets. His sodium is 135, potassium 4.2, chloride 99, CO2 29, BUN 17, creatinine 1.2 with a glucose 108 and a calcium of 8.1. His CRP is elevated at 15.07. On 12/07/2016 his PT was 11.4 with an INR of 1.07. IMPRESSION: 1. Microcytic anemia. 2. History of ileocolitis on endoscopy in 2016. 3. History of peptic ulcer disease. 4. Abdominal pain. 5. Change in bowel habits. RECOMMENDATION: 1. The patient states that he has an important work assignment and needs to report for duty in the morning. He has been in the [employer] for over 27 years. He has specifically requested that his EGD and colonoscopy be done as an outpatient after he completes his work- related assignment. 2. I will have our office contact the patient and schedule an outpatient EGD and colonoscopy. 3. He is currently receiving prednisone 50 mg daily. I would reduce the dose to 40 mg daily as an outpatient until he has his endoscopy. 4. I would complete the 10 day course of Levaquin and Flagyl. 5. Will have the patient return to clinic in the next 1-2 weeks to have an EGD and colonoscopy as an outpatient.
== END 2016-12-09 21:15 | disposition home or self-care (01) | DRG 386 ==
LOC: ED 13:03 → 4N 13:04 → 3N 12-07 14:15
PROVIDERS: ATTEND Internal Medicine
DX: K50.90 Crohn's disease, unspecified, without complications (principal); E87.1 Hypo-osmolality and hyponatremia; I10 Essential (primary) hypertension; E66.01 Morbid (severe) obesity due to excess calories; N28.9 Disorder of kidney and ureter, unspecified; K59.09 Other constipation; M19.90 Unspecified osteoarthritis, unspecified site; Z79.899 Other long term (current) drug therapy; E86.0 Dehydration; D50.9 Iron deficiency anemia, unspecified; Z87.11 Personal history of peptic ulcer disease
CPT/HCPCS: 36415; 74177; 80048; 80053; 81001; 82150; 83690; 83735; 85025; 85610; 85651; 85730; 86140; 96372; 96374; 96375; C9113; J1170; J1200; J1650; J2270; J2405; J2550; J7030; J7512; Q9967; S0030; S0164